=== PATIENT | male | born 1995 | race African-American/Black ===

== ENCOUNTER 2022-03-17 13:43 | Emergency (ER) | payer OTHER ==
[~2022-03-17] VITALS: Ht 177.8 cm; Wt 76.0 kg
[2022-03-17] MEDS ORDERED: IBUPROFEN 600MG TABLET PO STA (15:37)
[2022-03-17 15:42] VITALS: BP 117/88
[2022-03-17] MEDS ORDERED: DOCU-150 MT (16:48)
[2022-03-17] MEDS ORDERED: TRAM50TA PO (16:48)
[2022-03-17] MEDS ORDERED: HYDR25SU37 RC (16:48)
[2022-03-17] MEDS ORDERED: LIDO120C7 TP (16:48)
[2022-03-17] MEDS ORDERED: NAPR-681 PO (16:48)
== END 2022-03-17 17:15 | disposition home or self-care (01) ==
LOC: ER 13:53
DX: K62.89 Other specified diseases of anus and rectum (principal); K64.9 Unspecified hemorrhoids
CPT/HCPCS: 99283